=== PATIENT | male | born 1930 | race Caucasian/White ===

== ENCOUNTER 2018-08-08 16:45 | Inpatient (IN) | payer MEDICARE, MEDICAID ==
[2018-08-08] MEDS ORDERED: VANCOMYCIN HCL INJ 1000 MG VIAL IV ONE (16:53)
[2018-08-08] MEDS ORDERED: CEFEPIME 1 GM/D5W RTU 1 GM/50 ML RTUPB IV ONE (16:54)
--- NOTE | 2018-08-08 17:24 | ER Document Report ---
ED General - General Stated Complaint: FEVER Time Seen by Provider: 08/08/18 16:53 Mode of Arrival: Medic Information source: Emergency Med Personnel, Outside Facility Records Notes: This is an 88-year-old man with multiple medical issues including coronary artery disease, atrial fibrillation, cognitive communication deficit, deconditioning. Patient is sent in from [facility] for decreased mental status, shortness of breath and fever. Patient appears acutely ill. - HPI Onset: Yesterday Onset/Duration: Gradual Quality of pain: No pain Severity: None Pain Level: Denies Associated symptoms: Fever, Shortness of breath, Other - Decreased respiratory status Exacerbated by: Denies Relieved by: Denies Similar symptoms previously: No Recently seen / treated by doctor: No - Related Data Allergies/Adverse Reactions: No Known Allergies Allergy (Unverified 08/08/18 18:40) Past Medical History - General Information source: Emergency Med Personnel, Outside Facility Records - Social History Smoking Status: Unknown if Ever Smoked Cigarette use (# per day): No Chew tobacco use (# tins/day): No Frequency of alcohol use: None Drug Abuse: None Lives with: [facility] Family History: None Patient has suicidal ideation: No Patient has homicidal ideation: No - Past Medical History Cardiac Medical History: Reports: Hx Atrial Fibrillation, Hx Coronary Artery D isease Pulmonary Medical History: Reports: None EENT Medical History: Reports: None Neurological Medical History: Reports: None Endocrine Medical History: Reports: None Renal/ Medical History: Reports: None Malignancy Medical History: Reports None GI Medical History: Reports: None Musculoskeletal Medical History: Reports None Psychiatric Medical History: Reports: None Traumatic Medical History: Reports: None Infectious Medical History: Reports: None Review of Systems - Review of Systems Constitutional: Chills, Fever EENT: No symptoms reported Cardiovascular: denies: Chest pain, Palpitations Respiratory: See HPI Gastrointestinal: No symptoms reported Genitourinary: No symptoms reported Male Genitourinary: No symptoms reported Musculoskeletal: No symptoms reported Skin: No symptoms reported Hematologic/Lymphatic: No symptoms reported Neurological/Psychological: See HPI Physical Exam - Vital signs Vitals: Pulse Ox 90 L 08/08/18 16:47 Notes: Physical exam: GENERAL: Obtunded elderly male, tachycardic, hypoxic, respiratory distress HEAD: Atraumatic, normocephalic. EYES: Pupils equal round and reactive to light, extraocular movements intact, sclera anicteric, conjunctiva are normal. ENT: TMs normal, nares patent, oropharynx clear without exudates. Moist mucous membranes. NECK: Normal range of motion, supple without obvious mass or JVD. LUNGS: Bilateral rhonchi HEART: Regular rate and rhythm without murmurs, rubs or gallops. ABDOMEN: Soft, distended, he does have bowel sounds. No obvious tenderness to palpation. No guarding, no rebound. No masses appreciated. EXTREMITIES: Normal range of motion, no pitting or edema. No clubbing or cyanosis. NEUROLOGICAL: Obtunded PSYCH: Obtunded SKIN: Warm, Dry, normal turgor, no rashes or lesions noted. Course - Re-evaluation Re-evalutation: 08/08/18 21:13 Note: Given history of fever, shortness of breath, we will treat for sepsis. Patient does appear dry so we are giving fluids as per the sepsis protocol. He has received IV Vanco and IV cefepime. He is currently on BiPAP. He is DNR. 08/08/18 21:13 - Vital Signs Vital signs: Temp Pulse Resp BP Pulse Ox 99.3 F 15 103/58 L 100 08/08/18 17:59 08/08/18 19:16 08/08/18 19:16 08/08/18 19:16 - Laboratory Result Diagrams: 08/08/18 17:17 08/08/18 17:17 Laboratory results interpreted by me: 08/08/18 08/08/18 08/08/18 17:17 17:17 17:17 RBC 3.25 L Hgb 9.7 L Hct 30.0 L RDW 19.2 H Plt Count 93 L Seg Neuts % (Manual) 80 H Lymphocytes % (Manual) 7 L Abs Lymphs (Manual) 0.4 L PT 19.9 H VBG pH VBG pCO2 Sodium 145.4 H Chloride 109 H Carbon Dioxide 36 H Anion Gap 0 L BUN 41 H Calcium 8.0 L AST 488 H Alkaline Phosphatase 3540 H Total Protein 5.3 L Albumin 2.9 L Urine Protein Urine Urobilinogen Urine Ascorbic Acid 08/08/18 08/08/18 17:17 17:17 RBC Hgb Hct RDW Plt Count Seg Neuts % (Manual) Lymphocytes % (Manual) Abs Lymphs (Manual) PT VBG pH 7.11 L* VBG pCO2 94.9 H* Sodium Chloride Carbon Dioxide Anion Gap BUN Calcium AST Alkaline Phosphatase Total Protein Albumin Urine Protein 30 H Urine Urobilinogen 2.0 H Urine Ascorbic Acid 40 H - Diagnostic Test Radiology reviewed: Image reviewed, Reports reviewed - X-ray shows pulmonary infiltrates or possibly fluid overload - EKG Interpretation by Me Rate: Tachycardia - EKG shows atrial fibrillation with ventricular rate of 117, nonspecific T changes. Critical Care Note - Critical Care Note Total time excluding time spent on procedures (mins): 60 Discharge - Discharge Clinical Impression: Respiratory failure, Pneumonia Condition: Stable Disposition: ADMITTED INPATIENT Admitting Provider: Hospitalist - Dr. Gross Unit Admitted: [facility]
--- NOTE | 2018-08-08 17:32 | EKG REPORT ---
SEVERITY:- ABNORMAL ECG - ATRIAL FIBRILLATION NONSPECIFIC ST-T CHANGES , DIFFUSE. : Confirmed by: Everton Recio MD 08-Aug-2018 17:31:21
[2018-08-08 17:35] LABS: HEMOGLOBIN 9.7 g/dL (13.5-17.0); MEAN CORPUSCULAR HEMOGLOBIN 29.9 pg (27.0-33.4); MEAN CORPUSCULAR HGB CONC 32.5 g/dL (32.0-36.0); MEAN CORPUSCULAR VOLUME 92 fl (80-97); RED BLOOD COUNT 3.25 10^6/uL (4.35-5.55); RED CELL DISTRIBUTION WIDTH 19.2 % (11.5-14.0); WHITE BLOOD COUNT 5.3 10^3/uL (4.0-10.5)
[2018-08-08 17:37] LABS: INTERNATIONAL RATION (INR) 1.61; PLATELET COUNT 93 10^3/uL (150-450); PROTHROMBIN TIME 19.9 SEC (11.4-15.4)
[2018-08-08 17:41] LABS: VENOUS BLOOD BASE EXCESS -3.5 mmol/L; VENOUS BLOOD HCO3 29.5 mmol/L (20-32)
[2018-08-08 17:51] LABS: VENOUS BLOOD PH 7.11 (7.30-7.42)
[2018-08-08 17:52] LABS: VENOUS BLOOD PCO2 94.9 mmHg (35-63)
--- NOTE | 2018-08-08 17:54 | RADIOLOGY REPORT (SQ) ---
EXAM DESCRIPTION: CHEST SINGLE VIEW COMPLETED DATE/TIME: 08/08/2018 5:35 pm REASON FOR STUDY: bed 13 sepsis protocol COMPARISON: None. EXAM PARAMETERS: NUMBER OF VIEWS: One view. TECHNIQUE: Single frontal radiographic view of the chest acquired. RADIATION DOSE: NA LIMITATIONS: None. FINDINGS: LUNGS AND PLEURA: Diffuse bilateral airspace disease consistent with pneumonia or edema. Small bilateral pleural effusions left greater than right. MEDIASTINUM AND HILAR STRUCTURES: No masses. Contour normal. HEART AND VASCULAR STRUCTURES: Heart normal in size. Normal vasculature. BONES: No acute findings. HARDWARE: None in the chest. OTHER: No other significant finding. IMPRESSION: Bilateral alveolar airspace disease either pneumonia or edema. Small effusions. TECHNICAL DOCUMENTATION: JOB ID: [id number] [facility]- All Rights Reserved Reading location - IP/workstation name: [email or web address]
[2018-08-08 17:56] LABS: ABSOLUTE LYMPHOCYTES# (MANUAL) 0.4 10^3/uL (0.5-4.7); ABSOLUTE MONOCYTES # (MANUAL) 0.5 10^3/uL (0.1-1.4); ABSOLUTE NEUTROPHILS# (MANUAL) 4.4 10^3/uL (1.7-8.2); BAND NEUTROPHILS % (MANUAL) 3 % (3-5); BASOPHILS % (MANUAL) 0 % (0-2); EOSINOPHILS % (MANUAL) 1 % (0-6); LYMPHOCYTES % (MANUAL) 7 % (13-45); MONOCYTES % (MANUAL) 9 % (3-13); NUCLEATED RED BLOOD CELLS 3 /100 WBC (0); SEGMENTED NEUTROPHILS % (MAN) 80 % (42-78); TOTAL CELLS COUNTED 100
[2018-08-08 17:57] LABS: ANISOCYTOSIS 2+; PLATELET COMMENT DECREASED; POIKILOCYTOSIS SLIGHT; TOXIC GRANULATION SLIGHT
[2018-08-08 18:01] LABS: ALANINE AMINOTRANSFERASE 50 U/L (21-72); ALBUMIN 2.9 g/dL (3.5-5.0); ASPARTATE AMINO TRANSFERASE 488 U/L (17-59); BILIRUBIN,DIRECT 0.4 mg/dL (0.0-0.4); BILIRUBIN,TOTAL 0.6 mg/dL (0.2-1.3); BLOOD UREA NITROGEN 41 mg/dL (7-20); GLUCOSE 101 mg/dL (75-110); NEONATAL BILIRUBIN RESULT 0.2 mg/dL (0.1-1.1); POTASSIUM 4.3 mmol/L (3.6-5.0); TOTAL PROTEIN 5.3 g/dL (6.3-8.2)
[2018-08-08 18:02] LABS: APPEARANCE,URINE CLOUDY; BILIRUBIN,URINE NEGATIVE (NEGATIVE); COLOR,URINE YELLOW; GLUCOSE, URINE NEGATIVE (NEGATIVE); KETONES,URINE NEGATIVE (NEGATIVE); LEUKOCYTE ESTERASE,URINE NEGATIVE (NEGATIVE); NITRITE,URINE NEGATIVE (NEGATIVE); PROTEIN,URINE 30 mg/dL (NEGATIVE); URINE SPECIFIC GRAVITY 1.015
[2018-08-08 18:06] LABS: CARBON DIOXIDE 36 mmol/L (22-30); CHLORIDE 109 mmol/L (98-107); SODIUM 145.4 mmol/L (137-145)
[2018-08-08 18:10] LABS: ANION GAP 0 (5-19)
[2018-08-08 18:33] LABS: ALKALINE PHOSPHATASE 3540 U/L (38-126)
[2018-08-08] MEDS ORDERED: IPRATROPIUM/ALBUTEROL 0.5-2.5 MG/3 ML AMPUL NEB PRN (20:03)
[2018-08-08] MEDS ORDERED: ACETAMINOPHEN 325 MG TABLET PO PRN (20:03)
--- NOTE | 2018-08-08 21:02 | RADIOLOGY REPORT (SQ) ---
EXAM DESCRIPTION: CT ABDOMEN PELVIS WITHOUT IV CONTRAST, CT CHEST WITHOUT IV CONTRAST COMPLETED DATE/TME: 08/08/2018 19:51 CLINICAL HISTORY: 88 years, Male, sepsis COMPARISON: None. TECHNIQUE: 390 Images stored on PACS. All CT scanners at this facility use dose modulation, iterative reconstruction, and/or weight based dosing when appropriate to reduce radiation dose to as low as reasonably achievable (ALARA). [facility]: Dose Right [facility]: CareDose [facility]: Dose Right [facility]: Teradose 4D [facility]: [employer] LIMITATIONS: None. FINDINGS: CT chest: Atheromatous change and ectasia of the thoracic aorta. Rather extensive motion artifact. Cardiomegaly. Osseous structures are grossly intact. Moderate-sized bilateral pleural effusions with adjacent atelectasis and consolidative change. Superimposed airspace opacities bilaterally consistent with pneumonia. No pneumothorax. CT abdomen/pelvis: Levoconvex scoliosis of the lumbar spine. Diffuse anasarca. Limited evaluation of the liver, spleen, adrenal glands, pancreas, kidneys is unremarkable. Severe atheromatous changes. Large amount of stool in the colon and rectal vault with probable fecal impaction. Catheter within the urinary bladder. No free air. Small amount of ascites. Moderate to severe atheromatous change. No gross evidence for bowel obstruction. IMPRESSION: Moderate bilateral pleural effusions with consolidative changes superimposed airspace opacities bilaterally. Motion artifact. Fecal impaction. Large amount of stool in the colon. Severe atheromatous change. Small volume of ascites. Diffuse anasarca. TECHNICAL DOCUMENTATION: Quality ID # 436: Final reports with documentation of one or more dose reduction techniques (e.g., Automated exposure control, adjustment of the mA and/or kV according to patient size, use of iterative reconstruction technique) copyright 2010 [employer]- All Rights Reserved
--- NOTE | 2018-08-08 21:03 | RADIOLOGY REPORT (SQ) ---
EXAM DESCRIPTION: CT head without contrast CLINICAL HISTORY: 88 years Male; ams TECHNIQUE: Noncontrast CT head. All CT scans at this facility use dose modulation, iterative reconstruction, and/or weight based dosing when appropriate to reduce radiation dose to as low as reasonably achievable. COMPARISON: None. FINDINGS: Figueroa matter, white matter, ventricles, and cisterns are within normal limits. No acute hemorrhage or mass effect. Visualized portions of paranasal sinuses and mastoids are clear. Incidental torus palatinus is noted. There is also expansile lesion in the hard palate to the right of midline, protruding at least 1.4 cm into the right maxillary sinus. There is chronic surrounding reactive bone, suggesting a chronic granulomatous process. Visualized portions of the calvarium are within normal limits. IMPRESSION: 1. No acute intracranial findings. 2. 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 Follow-up evaluation is recommended.
[2018-08-08 21:20] LABS: CREATINE KINASE MB 3.29 ng/mL (<4.55)
[2018-08-08 21:27] LABS: TROPONIN I 0.216 ng/mL
[2018-08-08] MEDS ORDERED: HEPARIN SOD (PORCINE) 5,000 UNIT/ML 1 ML SYRINGE SUBCUT SCH (22:00)
[2018-08-08] MEDS ORDERED: MORPHINE SULFATE 10 MG/ML INJ IV PRN (22:04)
[2018-08-08] MEDS: MORPHINE SULFATE 10 MG/ML INJ IV PRN (22:28)
[2018-08-08] MEDS ORDERED: LACTULOSE SYRUP 20 GM/30 ML UDCUP PR ONE (22:30)
[2018-08-09] MEDS: MORPHINE SULFATE 10 MG/ML INJ IV PRN (01:10)
[2018-08-09] MEDS ORDERED: IPRATROPIUM BROMIDE 0.02% NEB 0.5 MG/2.5 ML AMPUL NEB SCH (02:00)
[2018-08-09] MEDS ORDERED: LEVALBUTEROL HCL NEB 1.25 MG/3 ML AMPUL NEB SCH (02:00)
[2018-08-09 04:51] VITALS: BP 116/90
--- NOTE | 2018-08-09 05:43 | PDOC H&P ---
History of Present Illness Admission Date/PCP: 08/08/18 20:12 EVERT WHITING MD Patient complains of: Fever and altered mental status History of Present Illness: СЕРГЕЙ EATON is a 88 year old male with a past medical history of coronary artery disease, atrial fibrillation, congestive heart failure and deconditioning. He presents with obtunded with altered mental status, profound hypotension, acute respiratory failure, pneumonia, congestive heart failure and sepsis. He receives IV antibiotics, BiPAP and referred to the hospitalist for admission. Patient is accompanied by long-term friend who states he has recently pursued palliative care and has knowledge his wishes for DNR. Past Medical History Cardiac Medical History: Reports: Atrial Fibrillation, Congestive Heart Failure, Coronary Artery Disease, Hypertension Pulmonary Medical History: Reports: None EENT Medical History: Reports: None Neurological Medical History: Reports: None Endocrine Medical History: Reports: None Renal/ Medical History: Reports: None Malignancy Medical History: Reports: None GI Medical History: Reports: None Musculoskeltal Medical History: Reports: None Psychiatric Medical History: Reports: None Traumatic Medical History: Reports: None Infectious Medical History: Reports: None Social History Information Source: [facility] Lives with: Retirement Smoking Status: Former Smoker Frequency of Alcohol Use: None Hx Recreational Drug Use: No Hx Prescription Drug Abuse: No - Advance Directive Resuscitation Status: Comfort Measures Only Family History Family History: None Parental Family History Reviewed: Yes Children Family History Reviewed: Yes Sibling(s) Family History Reviewed.: Yes Medication/Allergy Home Medications: Apixaban [Eliquis 5 mg Tablet] 5 mg PO Q12 08/08/18 Ascorbic Acid [Vitamin C 500 mg Tablet] 500 mg PO DAILY 08/08/18 Buspirone HCl [Buspar 5 mg Tablet] 5 mg PO Q8 08/08/18 Digoxin [Lanoxin 0.125 mg Tablet] 0.125 mg PO QPM 08/08/18 Doxazosin Mesylate [Cardura 2 mg Tablet] 2 mg PO QHS 08/08/18 Furosemide [Lasix 20 mg Tablet] 20 mg PO DAILY 08/08/18 Levothyroxine Sodium [Synthroid 0.025 mg Tablet] 0.025 mg PO Q6AM 08/08/18 Metoprolol Tartrate [Lopressor 25 mg Tablet] 25 mg PO Q12 08/08/18 Multivitamin [Tab-A-Kirstie (Multiple Vitamin) Tablet] 1 tab PO DAILY 08/08/18 Zinc Oxide [Diaper Rash] 1 applic TOP TID 08/08/18 Zinc Sulfate [Zinc-220 Capsule] 220 mg PO DAILY 08/08/18 Allergies/Adverse Reactions: No Known Allergies Allergy (Unverified 08/08/18 18:40) Review of Systems ROS unobtainable: Due to mental status Physical Exam Vital Signs: Temp Pulse Resp BP Pulse Ox 97.5 F 100 9 L 116/90 H 76 L 08/09/18 02:10 08/09/18 02:10 08/09/18 02:10 08/09/18 02:10 08/09/18 02:10 Intake & Output 08/07/18 08/08/18 08/09/18 11:59 11:59 11:59 Intake Total 50 Balance 50 Weight 63.63 kg General appearance: PRESENT: severe distress, thin. ABSENT: cooperative, disheveled Head exam: PRESENT: atraumatic, normocephalic Eye exam: PRESENT: conjunctiva pink, EOMI, PERRLA. ABSENT: scleral icterus Ear exam: PRESENT: normal external ear exam Mouth exam: PRESENT: moist, tongue midline Neck exam: PRESENT: JVD. ABSENT: carotid bruit, lymphadenopathy, thyromegaly Respiratory exam: PRESENT: accessory muscle use, crackles, decreased breath sounds, prolonged expiratory phas, rales, retraction, rhonchi, tachypnea. ABSENT: chest wall tenderness Cardiovascular exam: PRESENT: gallop, irregular rhythm, +S1, +S2, systolic murmur, tachycardia Pulses: ABSENT: normal carotid pulses, normal radial pulses, normal femoral pulses, normal dorsalis pedis pul Vascular exam: ABSENT: normal capillary refill GI/Abdominal exam: PRESENT: distended, normal bowel sounds, soft. ABSENT: guarding, mass, organolmegaly, rebound, tenderness Rectal exam: PRESENT: deferred Extremities exam: PRESENT: full ROM. ABSENT: calf tenderness, clubbing, pedal edema Neurological exam: PRESENT: altered. ABSENT: alert, oriented to person, orie nted to place, CN II-XII grossly intact, motor sensory deficit, normal gait, aphasic Psychiatric exam: PRESENT: other - Obtunded Skin exam: PRESENT: dry, intact, warm. ABSENT: cyanosis, rash Results Laboratory Results: 08/08/18 17:17 08/08/18 17:17 08/08/18 08/08/18 08/08/18 17:17 17:17 17:17 WBC 5.3 RBC 3.25 L Hgb 9.7 L Hct 30.0 L MCV 92 MCH 29.9 MCHC 32.5 RDW 19.2 H Plt Count 93 L Seg Neutrophils % Not Reportable Lymphocytes % Not Reportable Monocytes % Not Reportable Eosinophils % Not Reportable Basophils % Not Reportable Absolute Neutrophils Not Reportable Absolute Lymphocytes Not Reportable Absolute Monocytes Not Reportable Absolute Eosinophils Not Reportable Absolute Basophils Not Reportable VBG pH VBG pCO2 VBG HCO3 VBG Base Excess Sodium 145.4 H Potassium 4.3 Chloride 109 H Carbon Dioxide 36 H Anion Gap 0 L BUN 41 H Creatinine 1.08 Est GFR ( Amer) > 60 Est GFR (Non-Af Amer) > 60 Glucose 101 Lactic Acid 1.0 Calcium 8.0 L Total Bilirubin 0.6 AST 488 H ALT 50 Alkaline Phosphatase 3540 H Total Protein 5.3 L Albumin 2.9 L Urine Color Urine Appearance Urine pH Ur Specific [place] Urine Protein Urine Glucose (UA) Urine Ketones Urine Blood Urine Nitrite Ur Leukocyte Esterase Urine WBC (Auto) Urine RBC (Auto) 08/08/18 08/08/18 17:17 17:17 WBC RBC Hgb Hct MCV MCH MCHC RDW Plt Count Seg Neutrophils % Lymphocytes % Monocytes % Eosinophils % Basophils % Absolute Neutrophils Absolute Lymphocytes Absolute Monocytes Absolute Eosinophils Absolute Basophils VBG pH 7.11 L* VBG pCO2 94.9 H* VBG HCO3 29.5 VBG Base Excess -3.5 Sodium Potassium Chloride Carbon Dioxide Anion Gap BUN Creatinine Est GFR ( Amer) Est GFR (Non-Af Amer) Glucose Lactic Acid Calcium Total Bilirubin AST ALT Alkaline Phosphatase Total Protein Albumin Urine Color YELLOW Urine Appearance CLOUDY Urine pH 5.0 Ur Specific [place] 1.015 Urine Protein 30 H Urine Glucose (UA) NEGATIVE Urine Ketones NEGATIVE Urine Blood NEGATIVE Urine Nitrite NEGATIVE Ur Leukocyte Esterase NEGATIVE Urine WBC (Auto) 1 Urine RBC (Auto) 0 08/08/18 08/08/18 08/08/18 17:17 17:17 17:17 Creatine Kinase 633 H CK-MB (CK-2) 3.29 Troponin I 0.216 NT-Pro-B Natriuret Pep 61346 H Impressions: Head CT 08/08/18 00:00 IMPRESSION: 1. No acute intracranial findings. 2. 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 Follow-up evaluation is recommended. Chest X-Ray 08/08/18 16:46 IMPRESSION: Bilateral alveolar airspace disease either pneumonia or edema. Small effusions. Abdomen/Pelvis CT 08/08/18 19:51 IMPRESSION: Moderate bilateral pleural effusions with consolidative changes superimposed airspace opacities bilaterally. Motion artifact. Fecal impaction. Large amount of stool in the colon. Severe atheromatous change. Small volume of ascites. Diffuse anasarca. TECHNICAL DOCUMENTATION: Quality ID # 436: Final reports with documentation of one or more dose reduction techniques (e.g., Automated exposure control, adjustment of the mA and/or kV according to patient size, use of iterative reconstruction technique) copyright 2010 [employer]- All Rights Reserved Chest CT 08/08/18 19:51 IMPRESSION: Moderate bilateral pleural effusions with consolidative changes superimposed airspace opacities bilaterally. Motion artifact. Fecal impaction. Large amount of stool in the colon. Severe atheromatous change. Small volume of ascites. Diffuse anasarca. TECHNICAL DOCUMENTATION: Quality ID # [id number]: Final reports with documentation of one or more dose reduction techniques (e.g., Automated exposure control, adjustment of the mA and/or kV according to patient size, use of iterative reconstruction technique) copyright 2010 [employer]- All Rights Reserved Assessment and Plan - Diagnosis (1) Severe sepsis Is this a current diagnosis for this admission?: Yes Plan: Patient presents with multisystem organ failure most likely secondary to pneumonia. Patient's wishes are verified from friend at bedside recently pursuing palliative care. Patient appears uncomfortable with BiPAP. Comfort measures initiated. (2) Acute respiratory failure Is this a current diagnosis for this admission?: Yes Plan: Please see #1 (3) Congestive heart failure Is this a current diagnosis for this admission?: Yes Plan: Please see #1 (4) Pneumonia Is this a current diagnosis for this admission?: Yes Plan: Pneumonia care set initiated. Plan of care changed to comfort measures only - Time Time Spent with patient: 35 or more minutes - Inpatient Certification Medical Necessity: Need Close Monitoring Due to Risk of Patient Decompensation
--- NOTE | 2018-08-09 05:45 | Death Summary ---
Summary Date : 08/09/18 Time of :: 02:50 Autopsy: No Resuscitation Status: Comfort Measures Only - Final Diagnosis (1) Severe sepsis Is this a current diagnosis for this admission?: Yes (2) Acute respiratory failure Is this a current diagnosis for this admission?: Yes (3) Congestive heart failure Is this a current diagnosis for this admission?: Yes (4) Pneumonia Is this a current diagnosis for this admission?: Yes Hospital Course:: Patient admitted obtunded with altered mental status. Found to be in multisystem organ failure secondary to severe sepsis with pneumonia, acute respiratory failure and congestive heart failure with bilateral pleural effusions. He presents with DNR certificate. His wishes are known by his friend at bedside recently pursuing palliative care within the month. Comfort measures initiated. Patient expires shortly thereafter.
[2018-08-09] MEDS ORDERED: CEFEPIME 2 GM/D5W RTU 2 GM/50 ML RTUPB IV SCH (06:00)
[2018-08-09] MEDS ORDERED: LACTULOSE SYRUP 20 GM/30 ML UDCUP PR SCH (10:00)
== END 2018-08-09 03:55 | disposition left against medical advice (07) | DRG 871 ==
LOC: ER 16:45 → EH 20:12 → 4W 08-09 02:00
PROVIDERS: ADMIT Internal Medicine; ATTEND Internal Medicine
PROC: 5A09357 Assistance with Respiratory Ventilation, Less than 24 Consecutive Hours, Continuous Positive Airway Pressure (ICD-10-PCS; principal; 2018-08-08)
PROC: 3E0F73Z Introduction of Anti-inflammatory into Respiratory Tract, Via Natural or Artificial Opening (ICD-10-PCS; 2018-08-08)
DX: A41.9 Sepsis, unspecified organism (principal); J18.9 Pneumonia, unspecified organism; J96.90 Respiratory failure, unspecified, unspecified whether with hypoxia or hypercapnia; R65.20 Severe sepsis without septic shock; Z66 Do not resuscitate; I50.9 Heart failure, unspecified; I25.10 Atherosclerotic heart disease of native coronary artery without angina pectoris; I11.0 Hypertensive heart disease with heart failure; I48.91 Unspecified atrial fibrillation; Z87.891 Personal history of nicotine dependence; Z79.899 Other long term (current) drug therapy
CPT/HCPCS: 36415; 70450; 71045; 71250; 74176; 80053; 81001; 82550; 82553; 82803; 83605; 83880; 84484; 85025; 85610; 87040; 87077; 87086; 93005; 93010; 94660; 96365; 96367; 99291; J0692; J2270; J3370